=== PATIENT | female | born 1945 | race Caucasian/White ===

== ENCOUNTER → 2016-11-19 | Outpatient (CLI) | payer OTHER ==
--- NOTE | 2016-11-19 15:31 | REPMRS ---
Patient History The patient states she had a clinical breast exam in 07/2016. Patient is postmenopausal. Family history of ovarian cancer in sister at age 38. Took hormonal contraceptives for 8 years. Took unspecified hormones for 5 years. Digital Woman Screen Mammo: November 19, 2016 - Exam #: [id number] Bilateral CC and MLO view(s) were taken. Technologist: April Clinton, Technologist Prior study comparison: November 19, 2015, digital woman screen mammo performed at [facility]. July 24, 2014, digital woman screen mammo performed at [facility]. July 11, 2013, bilateral bilat screen digital mammo, performed at [facility] ([facility] FINDINGS: The breast tissue is heterogeneously dense. This may lower the sensitivity of mammography. There is a moderate amount of heterogeneously dense fibroglandular tissue which is fairly symmetric. There is no interval development of dominant mass, architectural distortion, or clustered microcalcification typical of malignancy. There has been no change in the appearance of the mammogram from the prior studies. ASSESSMENT: BI-RADS/ACR category 2 mammogram. Benign finding(s). Recommendation Routine screening mammogram of both breasts in 1 year (for women over age 40). This mammogram was interpreted with the aid of an FDA-approved computer-aided dectection system. Electronically Signed By: Jarvis Cartagena MD 11/19/16 [id number]
== END ==
LOC: M WHC 14:09
PROVIDERS: ATTEND Obstetrics & Gynecology
DX: Z12.31 Encounter for screening mammogram for malignant neoplasm of breast (principal); Z78.0 Asymptomatic menopausal state; Z92.0 Personal history of contraception; Z92.29 Personal history of other drug therapy; Z80.41 Family history of malignant neoplasm of ovary

== ENCOUNTER → 2017-11-21 | Outpatient (CLI) | payer OTHER | LOC: M WHC 09:47 | DX: Z12.31 Encounter for screening mammogram for malignant neoplasm of breast (principal) | CPT/HCPCS: 77067 ==

== ENCOUNTER 2018-12-26 14:50 | Inpatient (IN) | payer MEDICARE ==
[~2018-12-26] VITALS: Ht 154.9 cm; Wt 56.5 kg
[2018-12-26] MEDS ORDERED: LEVO50TA5 PO (15:15)
[2018-12-26] MEDS ORDERED: ATOR1TAB19 PO (15:15)
[2018-12-26] MEDS ORDERED: AMLO25TA PO (15:15)
[2018-12-26] MEDS ORDERED: LOSA100T8 PO (15:15)
[2018-12-26] MEDS ORDERED: MECLIZINE 25 MG TABLET PO ONE (15:45)
[2018-12-26 15:52] LABS: BASO % 0.3 % (0.0-1.0); EOS % 0.4 % (0.0-3.0); HEMATOCRIT 38.1 % (36.0-47.0); HEMOGLOBIN 12.7 g/dl (12.0-15.5); LYMPH # 2.2 10^3/uL (1.5-4.5); LYMPH % 31.9 % (24.0-44.0); MEAN CORPUSCULAR HEMOGLOBIN 30.2 pg (27.0-33.0); MEAN CORPUSCULAR HGB CONC 33.3 g/dl (32.0-36.5); MEAN CORPUSCULAR VOLUME 90.7 fl (80.0-96.0); MONO # 0.6 10^3/uL (0.0-0.8); MONO % 8.2 % (0.0-5.0); NEUTROPHILS % 58.3 % (36.0-66.0); PLATELET COUNT, AUTOMATED 212 10^3/uL (150-450); WHITE BLOOD COUNT 6.8 10^3/uL (4.0-10.0)
[2018-12-26] MEDS ORDERED: ONDANSETRON 4MG/2ML VIAL (J2405) IV ONE (16:00)
[2018-12-26] MEDS ORDERED: NS 500 ML IV ONE (16:00)
[2018-12-26 16:21] LABS: ALBUMIN 3.9 GM/DL (3.2-5.2); ALT/SGPT 26 U/L (12-78); BILIRUBIN,DIRECT 0.3 MG/DL (0.0-0.2); BILIRUBIN,TOTAL 1.1 MG/DL (0.2-1.0); BLOOD UREA NITROGEN 27 MG/DL (7-18); CALCIUM LEVEL 9.5 MG/DL (8.8-10.2); CARBON DIOXIDE LEVEL 30 MEQ/L (21-32); CHLORIDE LEVEL 103 MEQ/L (98-107); CK-MB VALUE MASS < 1.0 NG/ML (<3.6); CPK CREATINE PHOSPHOKINASE 82 U/L (26-192); CREATININE FOR GFR 1.24 MG/DL (0.55-1.30); FREE T4 1.09 NG/DL (0.76-1.46); GLOMERULAR FILTRATION RATE 44.9 (>39); GLUCOSE, FASTING 132 MG/DL (70-100); LIPASE 134 U/L (73-393); MB/CK RELATIVE INDEX 1.22 (< OR =4); NT-PRO BNP 264 PG/ML (<450); POTASSIUM SERUM 3.9 MEQ/L (3.5-5.1); SODIUM LEVEL 141 MEQ/L (136-145); TOTAL PROTEIN 7.1 GM/DL (6.4-8.2); TROPONIN I < 0.02 NG/ML (< 0.10)
--- NOTE | 2018-12-26 16:56 | REP ---
PORTABLE CHEST: AP portable view of the chest was performed and compared to prior study of 07/25/2011. There is mild cardiomegaly. There is scattered fibrotic scarring which appears stable with no evidence of acute infiltrate. Mediastinal silhouette is unchanged. IMPRESSION: Stable chronic findings without acute infiltrate. Electronically Signed by Percy Marshall MD 12/26/2018 06:49 P
[2018-12-26] MEDS ORDERED: VITAD1000T PO (17:44)
[2018-12-26] MEDS ORDERED: FISH1000 PO (17:44)
--- NOTE | 2018-12-26 18:12 | REP ---
CT brain without contrast: History: Syncope and headache. No comparison CT study. CT findings: Preliminary digital technical services representative radiograph is unremarkable. No bony calvarial lesion is seen. Visualized paranasal sinuses are clear. No intraorbital abnormality is appreciated. The lateral, third, and fourth ventricles are normal in size and position. There are mild periventricular low density changes in the supratentorial brain bilaterally consistent with small vessel atherosclerotic change. There is no evidence of intracranial hemorrhage. No infarct is seen. No mass or extra-axial fluid collection is noted. Impression: Mild small vessel changes. Otherwise negative head CT. Electronically Signed by Ji Cartagena MD 12/27/2018 08:02 A
[2018-12-26] MEDS ORDERED: ONDANSETRON 4MG/2ML VIAL (J2405) IV PRN (18:15)
--- NOTE | 2018-12-26 18:19 | HPEPDOC ---
General Date of Admission Dec 26, 2018 at 17:58 Date of Service: Dec 26, 2018 Chief Complaint The patient is a 73-year-old female Who presented to the emergency room after she had collapsed while History of Present Illness Patient is a 73-year-old female with a past medical history hype rtension, dyslipidemia and hypothyroidism who presented to the emergency room after she had collapsed while in her garage. Patient has reported that she has a history of experiencing dizziness at times of heat. . She reports that the last time she experiences with Thanksgiving when she was cooking in her kitchen. She reports at that point she was close to passing out, but had sat down and had alleviated her symptoms. Today, patient experienced dizziness while in her garage and she decided to sit down in a chair. . She reports that her friend went to get her some water and turned the fan on, however, she soon passed out. As per her friend was there and witnessed the event, she noted that she had complained of nausea but denied any vomiting. Patient may have lost consciousness for approximately 5 minutes, awoke with confusion that lasted for approximately 2-3 minutes. Upon regaining consciousness. Patient reported nausea and vomiting. Denied chest pain, shortness of breath, palpitations, cough. There was no witnessed seizure-like activity. No biting of her tongue and no incontinence of stool or urine. Of note, patient does report some dizziness with positional changes. And does a ttest to not drinking enough water throughout the day. Patient denies abdominal pain, diarrhea, discomfort with urination or any fevers or chills in the last 2 weeks. . She does report constipation. Denies any change in her weight. Reports that her appetite is normal. Home Medications Scheduled Amlodipine Besylate (Amlodipine Besylate) 2.5 Mg Tablet, 2.5 MG PO DAILY, (Reported) Atorvastatin Calcium (Atorvastatin Calcium) 10 Mg Tablet, 10 MG PO DAILY, (Reported) Levothyroxine Sodium (Levothyroxine Sodium) 50 Mcg Tablet, 50 MCG PO DAILY, (Reported) Losartan/Hydrochlorothiazide (Losartan-Hctz 100-12.5 mg Tab) 1 Each Tablet, 1 TAB PO DAILY, (Reported) [place]-3 Fatty Acids/Fish Oil (Fish Oil 1,000 mg Capsule) 1 Each Capsule, 1,000 MG PO DAILY, (Reported) Vitamin D (Vitamin D3) 1,000 Unit Tablet, 1,000 UNITS PO DAILY, (Reported) Allergies Coded Allergies: No Known Allergies (Unverified , 12/26/18) Past Medical History Medical History Hypertension, dyslipidemia and hypothyroidism Surgical History Dilation and curettage Left heel screw 1991 Family History - Mother and father are both - No history of malignancies Social History - Denies the use of alcohol, tobacco or illicit drugs - Denies recent travel or sick contacts - Lives with - Occupation; used to work at a restaurant Review of Systems Other systems 10 point review of systems complete, all negative otherwise stated in HPI Vital Signs - Vitals: BP 164/77, HR 74, RR 16, Sat 96%RA, Temp 97.1F - General: Lying in bed, No acute distress, Speaking in full sentences, AAOx3 - HEENT: NC, AT, PERRLA, EOMI - CVS: +S1S2, - Murmurs / rubs / gallops - Lungs: Fair air entry bilaterally, No appreciable wheezing / rales / rhonchi - Abdomen: Soft, Non-distended, Non-tender - Extremities: No lower extremity edema, No calf tenderness - Neuro: No focal motor or sensory deficit - Skin: No visible rashes Laboratory Data Labs 24H Laboratory Tests 2 12/26/18 15:37: Immature Granulocyte % (Auto) 0.9, White Blood Count 6.8, Red Blood Count 4.20, Hemoglobin 12.7, Hematocrit 38.1, Mean Corpuscular Volume 90.7, Mean Corpuscular Hemoglobin 30.2, Mean Corpuscular Hemoglobin Concent 33.3, Red Cell Distribution Width 13.6, Platelet Count 212, Neutrophils (%) (Auto) 58.3, Lymphocytes (%) (Auto) 31.9, Monocytes (%) (Auto) 8.2H, Eosinophils (%) (Auto) 0.4, Basophils (%) (Auto) 0.3, Neutrophils # (Auto) 4.0, Lymphocytes # (Auto) 2.2, Monocytes # (Auto) 0.6, Eosinophils # (Auto) 0.0, Basophils # (Auto) 0.0, Nucleated Red Blood Cells % (auto) 0.0, Anion Gap 8, Glomerular Filtration Rate 44.9, Calcium Level 9.5, Aspartate Amino Transf (AST/SGOT) 22, Alanine Aminotransferase (ALT/SGPT) 26, Alkaline Phosphatase 65, Total Bilirubin 1.1H, Direct Bilirubin 0.3H, Total Creatine Kinase 82, Creatine Kinase MB < 1.0, Creatine Kinase MB Relative Index 1.22, Troponin I < 0.02, VB-Hgq-Z-Type Natriuretic Peptide 264, Total Protein 7.1, Albumin 3.9, Albumin/Globulin Ratio 1.22, Lipase 134, Thyroid Stimulating Hormone (TSH) 6.620H, Free Thyroxine 1.09 CBC/BMP Laboratory Tests 12/26/18 15:37 Red Blood Count 4.20, Mean Corpuscular Volume 90.7, Mean Corpuscular Hemoglobin 30.2, Mean Corpuscular Hemoglobin Concent 33.3, Red Cell Distribution Width 13.6, Neutrophils (%) (Auto) 58.3, Lymphocytes (%) (Auto) 31.9, Monocytes (%) (Auto) 8.2 H, Eosinophils (%) (Auto) 0.4, Basophils (%) (Auto) 0.3, Neutrophils # (Auto) 4.0, Lymphocytes # (Auto) 2.2, Monocytes # (Auto) 0.6, Eosinophils # (Auto) 0.0, Basophils # (Auto) 0.0 Plan / VTE VTE Prophylaxis Ordered?: Yes Plan Plan Syncope - possibly 2/2 orthostatic hypotension - possibly 2/2 poor oral intake / diuresis - Presented to the emergency room after experiencing dizziness and loss of consciousness while in her hot garage - Physical without any specific findings - She did report dizziness and nausea - Cr appears to be at baseline - CT head without any acute findings - Will hold diuretic based medications - Will get ECHO, MRI Brain and EEG - c/w Telemetry - Will c/w IV fluid hydration Hypertension - BP moderately elevated - Will hold HCTZ - c/w Losartan and Amlodipine Dyslipidemia - c/w [place] 3 fish oils Hypothyroidism - c/w Levothyroxine DVT prophylaxis - Will start Heparin YINKA BATES MD Dec 26, 2018 18:19
[2018-12-26 20:00] VITALS: BP 116/68
[2018-12-26] MEDS: NS 1,000 ML IV SCH (21:49)
[2018-12-26] MEDS: HEPARIN SOD (PORCINE) 5000 UNITS/ML VIAL SC SCH (21:50)
[2018-12-27] VITALS (10 sets, daily range): BP systolic 121–175; BP diastolic 50–84
[2018-12-27] MEDS: LEVOTHYROXINE 50MCG TABLET (0.05MG) PO SCH (05:25)
[2018-12-27] MEDS: HEPARIN SOD (PORCINE) 5000 UNITS/ML VIAL SC SCH ×3 (05:25→21:54)
[2018-12-27 06:09] LABS: BASO % 0.2 % (0.0-1.0); EOS % 0.7 % (0.0-3.0); HEMATOCRIT 32.3 % (36.0-47.0); HEMOGLOBIN 10.8 g/dl (12.0-15.5); LYMPH # 1.4 10^3/uL (1.5-4.5); LYMPH % 23.1 % (24.0-44.0); MEAN CORPUSCULAR HEMOGLOBIN 29.8 pg (27.0-33.0); MEAN CORPUSCULAR HGB CONC 33.4 g/dl (32.0-36.5); MEAN CORPUSCULAR VOLUME 89.2 fl (80.0-96.0); MONO # 0.6 10^3/uL (0.0-0.8); MONO % 9.9 % (0.0-5.0); NEUTROPHILS # 3.9 10^3/uL (1.8-7.7); NEUTROPHILS % 65.8 % (36.0-66.0); PLATELET COUNT, AUTOMATED 203 10^3/uL (150-450); RED BLOOD COUNT 3.62 10^6/uL (4.00-5.40); WHITE BLOOD COUNT 5.9 10^3/uL (4.0-10.0)
[2018-12-27 06:31] LABS: CALCIUM LEVEL 8.7 MG/DL (8.8-10.2); CREATININE FOR GFR 1.06 MG/DL (0.55-1.30); GLOMERULAR FILTRATION RATE 53.8 (>39); MAGNESIUM LEVEL 2.1 MG/DL (1.8-2.4); POTASSIUM SERUM 3.8 MEQ/L (3.5-5.1)
[2018-12-27] MEDS: VITAMIN D 1,000 INTERNATIONAL UNITS TABLET PO SCH (08:17)
[2018-12-27] MEDS: OMEGA-3 1000MG CAPSULE PO SCH (08:17)
[2018-12-27] MEDS: ATORVASTATIN 10 MG TAB PO SCH (08:18)
[2018-12-27] MEDS: LOSARTAN 50 MG TAB PO SCH (08:18)
--- NOTE | 2018-12-27 09:06 | ECGEPIP ---
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
[2018-12-27] MEDS: NS 1,000 ML IV SCH (10:15)
[2018-12-27] MEDS ORDERED: LORazepam 0.5 MG TAB PO ONE (11:00)
--- NOTE | 2018-12-27 13:13 | IPNPDOC ---
Text Note Date of Service The patient was seen on 12/27/18. NOTE Subjective: Patient is a 73-year-old female with a past medical history hypertension, dyslipidemia and hypothyroidism who presented to the emergency room after she had collapsed while in her garage. Patient has reported that she has a history of experiencing dizziness at times of heat. Patient experienced dizziness while in her garage and she decided to sit down in a chair. She reports that her friend went to get her some water and turned the fan on, however, she soon passed out. As per her friend was there and witnessed the event, she noted that she had complained of nausea but denied any vomiting. Patient may have lost consciousness for approximately 5 minutes, awoke with confusion that lasted for approximately 2-3 minutes. Upon regaining co nsciousness. Patient reported nausea and vomiting. Denied chest pain, shortness of breath, palpitations, cough. Patient was admitted to hospitalist service for further evaluation and treatment. Patient was seen and examined at the bedside. . Patient has no new complaints. She denies chest pain, shortness of breath, palpitations, nausea, vomiting, abdominal pain, diarrhea or discomfort with urination. Objective: Vitals (See below) General: Lying in bed, no acute distress, comfortable, AAOx3 HEENT: NC, AT CVS: RRR, +S1S2 Lungs: Fair air entry b/l, -w/r/r Abdomen: Soft, ND, NT Extremities: No evidence of lower extremity edema, - Calf tenderness Assessment and plan: Syncope - possibly 2/2 orthostatic hypotension - possibly 2/2 poor oral intake / diuresis - Presented to the emergency room after experiencing dizziness and loss of consciousness while in her hot garage; followed by nausea and vomiting upon waking up - Currently patient is asymptomatic - Physical without any specific findings; orthostatic vital signs are negative - Cr has improved slightly - CT head without any acute findings - s/p Diuretic based medications - ECHO, MRI Brain and EEG are pending - c/w Telemetry - Will DC IV fluid hydration Hypertension - BP moderately elevated - Will hold HCTZ - c/w Losartan and Amlodipine Dyslipidemia - c/w [place] 3 fish oils Hypothyroidism - c/w Levothyroxine DVT prophylaxis - c/w Heparin Disposition: - Anticipate discharge home tomorrow VS,Fishbone, I+O VS, Fishbone, I+O Laboratory Tests 12/26/18 15:37 Red Blood Count 4.20, Mean Corpuscular Volume 90.7, Mean Corpuscular Hemoglobin 30.2, Mean Corpuscular Hemoglobin Concent 33.3, Red Cell Distribution Width 13.6, Neutrophils (%) (Auto) 58.3, Lymphocytes (%) (Auto) 31.9, Monocytes (%) (Auto) 8.2 H, Eosinophils (%) (Auto) 0.4, Basophils (%) (Auto) 0.3, Neutrophils # (Auto) 4.0, Lymphocytes # (Auto) 2.2, Monocytes # (Auto) 0.6, Eosinophils # (Auto) 0.0, Basophils # (Auto) 0.0 12/27/18 05:45 Red Blood Count 3.62 L, Mean Corpuscular Volume 89.2, Mean Corpuscular H emoglobin 29.8, Mean Corpuscular Hemoglobin Concent 33.4, Red Cell Distribution Width 13.6, Neutrophils (%) (Auto) 65.8, Lymphocytes (%) (Auto) 23.1 L, Monocytes (%) (Auto) 9.9 H, Eosinophils (%) (Auto) 0.7, Basophils (%) (Auto) 0.2, Neutrophils # (Auto) 3.9, Lymphocytes # (Auto) 1.4 L, Monocytes # (Auto) 0.6, Eosinophils # (Auto) 0.0, Basophils # (Auto) 0.0, Calcium Level 8.7 L Vital Signs Date Time Temp Pulse Resp B/P (MAP) Pulse Ox O2 Delivery O2 Flow Rate FiO2 12/27/18 11:53 96.7 68 20 150/82 (104) 100 12/26/18 19:52 Room Air I&O- Last 24 Hours up to 6 AM 12/27/18 06:00 Intake Total 1450 ml Output Total 1100 ml Balance 350 ml YINKA BATES MD Dec 27, 2018 13:12
[2018-12-28] VITALS: BP 121/73
[2018-12-28 04:00] VITALS: BP 128/71
[2018-12-28 05:39] LABS: BASO % 0.2 % (0.0-1.0); EOS # 0.1 10^3/uL (0.0-0.50); EOS % 1.5 % (0.0-3.0); HEMATOCRIT 33.5 % (36.0-47.0); HEMOGLOBIN 11.1 g/dl (12.0-15.5); LYMPH # 1.4 10^3/uL (1.5-4.5); LYMPH % 29.9 % (24.0-44.0); MEAN CORPUSCULAR HEMOGLOBIN 30.9 pg (27.0-33.0); MEAN CORPUSCULAR HGB CONC 33.1 g/dl (32.0-36.5); MEAN CORPUSCULAR VOLUME 93.3 fl (80.0-96.0); MONO # 0.5 10^3/uL (0.0-0.8); MONO % 11.1 % (0.0-5.0); NEUTROPHILS # 2.6 10^3/uL (1.8-7.7); NEUTROPHILS % 57.1 % (36.0-66.0); PLATELET COUNT, AUTOMATED 194 10^3/uL (150-450); RED BLOOD COUNT 3.59 10^6/uL (4.00-5.40); WHITE BLOOD COUNT 4.6 10^3/uL (4.0-10.0)
[2018-12-28 05:59] LABS: CALCIUM LEVEL 9.1 MG/DL (8.8-10.2); CREATININE FOR GFR 1.17 MG/DL (0.55-1.30); POTASSIUM SERUM 4.3 MEQ/L (3.5-5.1)
[2018-12-28] MEDS: LEVOTHYROXINE 50MCG TABLET (0.05MG) PO SCH (06:23)
[2018-12-28] MEDS: HEPARIN SOD (PORCINE) 5000 UNITS/ML VIAL SC SCH (06:23)
--- NOTE | 2018-12-28 08:26 | ECHO ---
DATE OF PROCEDURE: 12/27/2018 DATE OF : 1945 AGE: 73 REFERRING PROVIDER: Dr. Jorge A Berg PATIENT LOCATION: Room 3228 REASON FOR THE ECHOCARDIOGRAM: Syncope. 2-D MEASUREMENTS: IVS: 0.86 cm LV: 3.5 cm LVPW: 0.99 cm LA: 3.1 cm Aorta: 2.7 cm IVC: 1.8 cm DOPPLER MEASUREMENTS: Peak velocity across the aortic valve: 0.8 m/s Peak velocity across the LVOT: 0.74 m/s Mitral E: 0.58, Mitral A: 0.55 with a ratio of 1.1 Maximum tricuspid valve velocity: 2.7 m/s 2-D COMMENTS: 1. Normal left ventricular size, wall thickness, and normal global left ventricular systolic function. The estimated left ventricular systolic ejection fraction is 60-65%. 2. Normal left atrium. The right atrium and the right ventricle appeared to be mildly enlarged. The right ventricle free wall seems to be jerrell. 3. The atrial septum appeared to be normal without evidence of defect or shunt. 4. Normal aortic root. 5. Trace pericardial effusion noted, no evidence of cardiac tamponade. 6. Mildly calcified aortic valve with normal leaflet excursion. There was mild prolapse of the anterior mitral valve leaflet noted in limited views. Normal tricuspid valve and pulmonic valve. The proximal pulmonary artery branches were not well visualized. 7. The inferior vena cava was normal in size, central venous pressure is most likely normal. DOPPLER: It detects trace aortic regurgitation, mild mitral regurgitation, and moderately severe tricuspid regurgitation. The calculated pulmonary artery systolic pressure varies between 50-60 mmHg. Abnormal relaxation pattern was noted across the mitral valve annulus consistent with features of grade 2 left ventricular diastolic dysfunction. IMPRESSION: 1. Normal global left ventricular systolic function. There are features of left ventricular diastolic dysfunction, grade 2. 2. Aortic valve sclerosis with trace aortic radiation but no aortic stenosis. 3. Mild mitral regurgitation with probably prolapse of the anterior mitral valve leaflet. 4. Moderately severe tricuspid regurgitation with moderate pulmonary hypertension and dilated right heart chambers. The right ventricular free wall seems to be jerrell. 5. Trace pericardial effusion noted, no evidence of cardiac tamponade. 6. Trace pulmonic regurgitation.
--- NOTE | 2018-12-28 08:48 | REPVR ---
EXAM: MR Head Without Contrast EXAM DATE/TIME: 12/27/2018 7:11 PM CLINICAL HISTORY: 73 years old, female; Dizziness and syncope and collapse; Patient HX: Syncope, dizziness; Additional info: Syncope / vertigo TECHNIQUE: Imaging protocol: MR of the head without contrast. COMPARISON: CT Head without contrast 12/26/2018 4:30 PM FINDINGS: Brain: No evidence of acute cortical infarct. No evidence of restricted diffusion. There is no evidence of intracranial hemorrhage. Nonspecific Flair/T2 hyperintensities within the cerebral white matter/brainstem statistically most likely on the basis of chronic small vessel ischemic change. No cerebellar mass. No Chiari malformation.No CP angle mass. Ventricles: The ventricular system is midline and normal in size for the degree of sulcal dilatation. No hydrocephalus. Bones/joints: No suspicious marrow replacing lesions. Soft tissues: Normal. Sinuses: The demonstrated paranasal sinuses are free of air-fluid level or suspicious mass. Mastoid air cells: Normal as visualized. No mastoid effusion. Orbits/sella: The optic chiasm is normal. No pituitary region mass. No suspicious orbital mass. Bilateral staphyloma incidentally noted. IMPRESSION: No evidence of acute ischemia, hemorrhage or mass effect. Nonemergent/chronic findings as described above. Electronically signed by: Pk Taylor On 12/28/2018 08:48:30 AM
[2018-12-28 08:50] VITALS: BP_SYST 122; BP_SYST 128; BP_SYST 132; BP_DIAS 70; BP_DIAS 78
[2018-12-28 09:16] VITALS: BP 122/70
[2018-12-28] MEDS: LOSARTAN 50 MG TAB PO SCH (09:16)
[2018-12-28] MEDS: VITAMIN D 1,000 INTERNATIONAL UNITS TABLET PO SCH (09:16)
[2018-12-28] MEDS: ATORVASTATIN 10 MG TAB PO SCH (09:17)
[2018-12-28] MEDS: OMEGA-3 1000MG CAPSULE PO SCH (09:17)
[2018-12-28] MEDS ORDERED: AMLO5TAB6 PO (10:08)
[2018-12-28] MEDS ORDERED: COZA50TA PO (10:08)
--- NOTE | 2018-12-28 12:57 | DS.PDOC ---
Discharge Summary General Date of Admission Dec 26, 2018 at 17:58 Date of Discharge 12/28/2018 Discharge Summary PROCEDURES PERFORMED DURING STAY: [None]. ADMITTING DIAGNOSES / DISCHARGE DIAGNOSES: Syncope - possibly 2/2 orthostatic hypotension - possibly 2/2 poor oral intake / diuresis Hypertension Dyslipidemia Hypothyroidism DVT prophylaxis COMPLICATIONS/CHIEF COMPLAINT: Syncope. HISTORY OF PRESENT ILLNESS: Patient is a 73-year-old female with a past medical history hypertension, dyslipidemia and hypothyroidism who presented to the emergency room after she had collapsed while in her garage. Patient has reported that she has a history of experiencing dizziness at times of heat. Patient experienced dizziness while in her garage and she decided to sit down in a chair. She reports that her friend went to get her some water and turned the fan on, however, she soon passed out. As per her friend was there and witnessed the event, she noted that she had complained of nausea but denied any vomiting. Patient may have lost consciousness for approximately 5 minutes, awoke with confusion that lasted for approximately 2-3 minutes. Upon regaining consciousness. Patient reported nausea and vomiting. Denied chest pain, shortness of breath, palpitations, cough. Patient was admitted to hospitalist service for further evaluation and treatment. HOSPITAL COURSE: Syncope - possibly 2/2 orthostatic hypotension - possibly 2/2 poor oral intake / diuresis - Presented to the emergency room after experiencing dizziness and loss of consciousness while in her hot garage; followed by nausea and vomiting upon waking up - Currently patient is asymptomatic - Physical without any specific findings; orthostatic vital signs are negative - Cr has improved slightly - CT head without any acute findings - s/p Diuretic based medications - ECHO 12/27: G2DD, AV sclerosis, trace AR, mild MR, moderately severe tricuspid regurgitation with moderate pulmonary HTN, trace pericardial effusion, no tamp onade - MRI 12/27: No evidence of acute ischemia, hemorrhage or mass effect. Nonemergent/chronic findings as described above. - EEG completed; report pending + - c/w Telemetry - s/p IV fluid hydration - Will have outpatient follow-up with Dr. Julio Stallings within 7 days Hypertension - BP moderately elevated - HCTZ has been discontinued - c/w Losartan and Amlodipine; dose of amlodipine has been increased on discharge Dyslipidemia - c/w [place] 3 fish oils Hypothyroidism - c/w Levothyroxine DVT prophylaxis - c/w Heparin DISCHARGE MEDICATIONS: Please see below. ALLERGIES: Please see below. PHYSICAL EXAMINATION ON DISCHARGE: Vitals (See below) General: Lying in bed, no acute distress, comfortable, AAOx3 HEENT: NC, AT CVS: +S1S2 Lungs: Fair air entry b/l, no appreciable wheezing, rhonchi or rales Abdomen: Soft, nondistended and nontender Extremities: Lower extremity are free of any edema, - Calf tenderness LABORATORY DATA: Please see below. ACTIVITY: [As tolerated]. DISCHARGE PLAN: Please follow up with Dr. Julio Stallings within 7 days Remain compliant with treatment plan and medications Return to the ER if you experience any problems DISPOSITION: Home, Self-Care. DISCHARGE CONDITION: [Stable]. TIME SPENT ON DISCHARGE: 35 minutes Vital Signs/I&Os Vital Signs Date Time Temp Pulse Resp B/P (MAP) Pulse Ox O2 Delivery O2 Flow Rate FiO2 12/28/18 09:16 122/70 12/28/18 09:16 73 12/28/18 08:00 97.2 20 97 12/26/18 19:52 Room Air I&O- Last 24 Hours up to 6 AM 12/28/18 06:00 Intake Total 1860 ml Output Total 1100 ml Balance 760 ml Laboratory Data Labs 24H Laboratory Tests 2 12/28/18 05:10: Immature Granulocyte % (Auto) 0.2, White Blood Count 4.6, Red Blood Count 3.59L, Hemoglobin 11.1L, Hematocrit 33.5L, Mean Corpuscular Volume 93.3, Mean Corpuscular Hemoglobin 30.9, Mean Corpuscular Hemoglobin Concent 33.1, Red Cell Distribution Width 13.9, Platelet Count 194, Neutrophils (%) (Auto) 57.1, Lymphocytes (%) (Auto) 29.9, Monocytes (%) (Auto) 11.1H, Eosinophils (%) (Auto) 1.5, Basophils (%) (Auto) 0.2, Neutrophils # (Auto) 2.6, Lymphocytes # (Auto) 1.4L, Monocytes # (Auto) 0.5, Eosinophils # (Auto) 0.1, Basophils # (Auto) 0.0, Nucleated Red Blood Cells % (auto) 0.0, Anion Gap 5L, Glomerular Filtration Rate 48.0, Blood Urea Nitrogen 22H, Creatinine 1.17, Sodium Level 145, Potassium Level 4.3, Chloride Level 109H, Carbon Dioxide Level 31, Calcium Level 9.1, Magnesium Level 2.0 CBC/BMP Laboratory Tests 12/28/18 05:10 Red Blood Count 3.59 L, Mean Corpuscular Volume 93.3, Mean Corpuscular Hemoglobin 30.9, Mean Corpuscular Hemoglobin Concent 33.1, Red Cell Distribution Width 13.9, Neutrophils (%) (Auto) 57.1, Lymphocytes (%) (Auto) 29.9, Monocytes (%) (Auto) 11.1 H, Eosinophils (%) (Auto) 1.5, Basophils (%) (Auto) 0.2, Neutrophils # (Auto) 2.6, Lymphocytes # (Auto) 1.4 L, Monocytes # (Auto) 0.5, Eosinophils # (Auto) 0.1, Basophils # (Auto) 0.0, Calcium Level 9.1 Discharge Medications Scheduled Amlodipine Besylate (Amlodipine Besylate) 5 Mg Tablet, 1 TAB PO DAILY Atorvastatin Calcium (Atorvastatin Calcium) 10 Mg Tablet, 10 MG PO DAILY, (Reported) Levothyroxine Sodium (Levothyroxine Sodium) 50 Mcg Tablet, 50 MCG PO DAILY, (Reported) Losartan Potassium (Cozaar) 50 Mg Tablet, 100 MG PO DAILY [place]-3 Fatty Acids/Fish Oil (Fish Oil 1,000 mg Capsule) 1 Each Capsule, 1,000 MG PO DAILY, (Reported) Vitamin D (Vitamin D3) 1,000 Unit Tablet, 1,000 UNITS PO DAILY, (Reported) Allergies Coded Allergies: No Known Allergies (Unverified , 12/26/18) YINKA BATES MD Dec 28, 2018 12:57
--- NOTE | 2018-12-28 16:09 | EEG ---
DATE OF EE12/27/2018 REFERRING PHYSICIAN: Dr. Melita Berg DIAGNOSIS: Syncope. EEG NUMBER: [id number] HISTORY: Patient is a 73-year-old woman who was cleaning garage at house of her daughter when she felt hot, lightheadedness and passed out. This EEG was done to rule out epileptic potential. She is currently taking losartan, Lipitor, levothyroxine, amlodipine, Ativan, etc. TECHNICAL DESCRIPTION: This digital EEG was recorded by 21 scalp, ear and two EKG electrodes and was reviewed in bipolar and referential montages following reformatting in 10-20 international electrode placement system. INTERPRETATION: Patient was noted to be in awake and drowsy states during this EEG. Resting awake background rhythm consisted of well-formed posterior dominant rhythm with anterior/posterior gradient comprising of 9 Hz alpha activity measuring 15-40 microvolts in amplitude, which was symmetric and reactive to eye opening. Attenuation of posterior dominant rhythm was seen during transition into drowsiness. Anteriorly low voltage and mixed frequency activity was noted. No sleep was achieved. Hyperventilation could not be performed. Photic stimulation remained unremarkable. No focal, lateralizing or epileptiform abnormalities were seen. No clinical or electrographic seizures were recorded. CONCLUSION: This EEG in awake and drowsy states is within normal limits. EKG revealed normal sinus rhythm.
== END 2018-12-28 11:42 | disposition home or self-care (01) | DRG 312 ==
LOC: M ED 14:50 → EDBD 14:50 → M ED INP 17:58 → M PCU 20:20
PROVIDERS: ADMIT Internal Medicine; ATTEND Internal Medicine
DX: I95.1 Orthostatic hypotension (principal); E78.5 Hyperlipidemia, unspecified; E03.9 Hypothyroidism, unspecified; K59.00 Constipation, unspecified; I10 Essential (primary) hypertension; Z79.899 Other long term (current) drug therapy

== ENCOUNTER → 2019-12-05 | Outpatient (CLI) | payer MEDICARE ==
[~2019-12-05] MED LIST: AMLO1TAB24 PO; AMLO25TA PO; ATOR1TAB19 PO; CALC600T61 PO; CHOL100029 PO; COZA50TA PO; D31000TA2 PO; FISH1000 PO; LEVO50TA5 PO; LOSA100T8 PO; MILKSUS3 PO; MIRA3350 PO; MM S100C PO; VALS1TAB66 PO
[2019-12-05 14:46] LABS: ALBUMIN 4.1 GM/DL (3.2-5.2); BILIRUBIN,TOTAL 1.3 MG/DL (0.2-1.0); CALCIUM LEVEL 9.7 MG/DL (8.8-10.2); CREATININE FOR GFR 1.09 MG/DL (0.55-1.30); POTASSIUM SERUM 4.2 MEQ/L (3.5-5.1); TOTAL PROTEIN 7.6 GM/DL (6.4-8.2)
[2019-12-05 15:25] LABS: BASO % 0.2 % (0.0-1.0); EOS % 0.2 % (0.0-3.0); HEMATOCRIT 41.4 % (36.0-47.0); HEMOGLOBIN 13.5 g/dl (12.0-15.5); LYMPH # 2.1 10^3/uL (1.5-5.0); LYMPH % 21.4 % (24.0-44.0); MEAN CORPUSCULAR HEMOGLOBIN 30.1 pg (27.0-33.0); MEAN CORPUSCULAR HGB CONC 32.6 g/dl (32.0-36.5); MEAN CORPUSCULAR VOLUME 92.4 fl (80.0-96.0); MONO # 0.7 10^3/uL (0.0-0.8); MONO % 7.2 % (0.0-5.0); NEUTROPHILS # 6.8 10^3/uL (1.5-8.5); NEUTROPHILS % 70.7 % (36.0-66.0); PLATELET COUNT, AUTOMATED 262 10^3/uL (150-450); RED BLOOD COUNT 4.48 10^6/uL (4.00-5.40); WHITE BLOOD COUNT 9.6 10^3/uL (4.0-10.0)
[2019-12-05 16:24] LABS: ERYTHROCYTE SEDIMENTATION RATE 14 mm/hr (0-30)
== END ==
LOC: M WUC 11:29
PROVIDERS: ATTEND Physician Assistant
DX: L04.0 Acute lymphadenitis of face, head and neck (principal)

== ENCOUNTER → 2020-01-21 | Outpatient (REF) | payer MEDICARE | LOC: M LAB REF 06:58 | PROVIDERS: ATTEND Internal Medicine | DX: R19.4 Change in bowel habit (principal) ==

== ENCOUNTER → 2020-04-11 | Outpatient (CLI) | payer MEDICARE | LOC: M LABSMTC 10:20 | PROVIDERS: ATTEND Anesthesiology | DX: Z01.812 Encounter for preprocedural laboratory examination (principal); Z20.828 Contact with and (suspected) exposure to other viral communicable diseases | CPT/HCPCS: C9803; U0003 ==

== ENCOUNTER 2020-04-16 07:59 | Day surgery (SDC) | payer MEDICARE ==
[~2020-04-16] VITALS: Ht 157.5 cm; Wt 53.5 kg
[~2020-04-16 07:59] MED LIST changes: +LIDOCAINE 2% 100MG/5ML SDV (FOR ANES.) As Ordered ONE; +NS 1,000 ML IV ONE; +propofoL 200 MG/20 ML VIAL As Ordered ONE
[2020-04-16 09:45] VITALS: BP 139/65
--- NOTE | 2020-04-16 14:54 | ROOR ---
Patient Name: Divya Lee Procedure Date: 04/16/2020 8:36 AM Date of : 1945 Age: 74 Room: [facility] Gender: Female Note Status: Finalized Procedure: Total Colonoscopy to Cecum + Bx. To r/o Microscopic Colitis Indications: Change in bowel habits Providers: Eric Hi MD Referring MD: Lidia Stallings DO Requesting Provider: Medicines: Monitored Anesthesia Care Complications: No immediate complications. Procedure: Pre-Anesthesia Assessment: - The heart rate, respiratory rate, oxygen saturations, blood pressure, adequacy of pulmonary ventilation, and response to care were monitored throughout the procedure. The Colonoscope was introduced through the anus and advanced to the cecum, identified by appendiceal orifice and ileocecal valve. The Colonoscope was introduced through the and advanced to. The colonoscopy was performed without difficulty. The patient tolerated the procedure well. The quality of the bowel preparation was good. Findings: The perianal and digital rectal examinations were normal. Non-bleeding internal hemorrhoids were found during retroflexion. The hemorrhoids were small and Grade I (internal hemorrhoids that do not prolapse). No other significant abnormalities were identified in a careful examination of the remainder of the colon. Biopsies for histology were taken with a cold forceps from the ascending colon, transverse colon, descending colon and rectosigmoid colon for evaluation of microscopic colitis. The exam was otherwise without abnormality on direct and retroflexion views. Impression: - Non-bleeding internal hemorrhoids. - The examination was otherwise normal on direct and retroflexion views. - Biopsies were taken with a cold forceps from the ascending colon, transverse colon, descending colon and rectosigmoid colon for evaluation of microscopic colitis. - The exam was otherwise normal to the cecum. Recommendation: - Patient has a contact number available for emergencies. The signs and symptoms of potential delayed complications were discussed with the patient. Return to normal activities tomorrow. Written discharge instructions were provided to the patient. - High fiber diet. - Discharge patient to home. - Continue present medications. - Await pathology results. - Telephone GI clinic for pathology results in 1 week. - Return to referring physician. - Repeat colonoscopy is not recommended due to current age (66 years or older) for screening purposes. - The findings and recommendations were discussed with the patient. Eric Hi MD Eric Hi MD 04/16/2020 2:54:28 PM Electronically signed by Eric Hi MD Number of Addenda: 0 Note Initiated On: 04/16/2020 8:36 AM Estimated Blood Loss: Estimated blood loss: none.
== END 2020-04-16 09:56 | disposition home or self-care (01) ==
LOC: M OPP 07:59
PROVIDERS: ATTEND Internal Medicine Gastroenterology
DX: K64.0 First degree hemorrhoids (principal); R19.4 Change in bowel habit; K21.9 Gastro-esophageal reflux disease without esophagitis; Z79.899 Other long term (current) drug therapy

== ENCOUNTER → 2020-05-05 | Outpatient (CLI) | payer MEDICARE ==
[~2020-05-05] MED LIST changes: -LIDOCAINE 2% 100MG/5ML SDV (FOR ANES.) As Ordered ONE; -NS 1,000 ML IV ONE; -propofoL 200 MG/20 ML VIAL As Ordered ONE
--- NOTE | 2020-05-05 16:19 | REPMRS ---
Patient History The patient states she has not had a clinical breast exam in over a year. Family history of ovarian cancer at age 38 in sister. Took hormonal contraceptives for 8 years. Took unspecified hormones for 5 years. 3D TOMOSYNTHESIS WAS PERFORMED. [facility] [place] breast density c. Digital Woman Screen Mammo: May 05, 2020 - Exam #: [id number] Bilateral CC and MLO view(s) were taken. Technologist: Edwige Juarez, Technologist Prior study comparison: November 21, 2018, bilateral digital woman screen mammo performed at [facility]. November 21, 2017, digital woman screen mammo performed at [facility]. FINDINGS: The breast tissue is heterogeneously dense. This may lower the sensitivity of mammography. There has been no change in the appearance of the mammogram from the prior studies. There is a moderate amount of residual fibroglandular tissue which is fairly symmetric. There is no interval development of dominant mass, areas of architectural distortion, or clustered microcalcification typical of malignancy. Assessment: BI-RADS/ACR category 1 mammogram. Negative Mammogram. Recommendation Routine screening mammogram in 1 year (for women over age 40). This mammogram was interpreted with the aid of an FDA-approved computer-aided dectection system. Electronically Signed By: Percy Marshall MD 05/05/20 [id number]
== END ==
LOC: M WHC 15:52
PROVIDERS: ATTEND Internal Medicine
DX: Z12.31 Encounter for screening mammogram for malignant neoplasm of breast (principal); Z80.41 Family history of malignant neoplasm of ovary

== ENCOUNTER → 2020-06-29 | Outpatient (CLI) | payer MEDICARE | LOC: M LABSMTC 10:06 | PROVIDERS: ATTEND Internal Medicine | DX: Z20.822 Contact with and (suspected) exposure to COVID-19 (principal) ==

== ENCOUNTER → 2020-11-20 | Outpatient (CLI) | payer MEDICARE ==
--- NOTE | 2020-11-21 05:06 | REP ---
INDICATION: THYROID NODULES COMPARISON: 07/25/2018 TECHNIQUE: Marshall scale and color evaluation of the thyroid gland using the linear high frequency transducer. FINDINGS: The thyroid gland is normal in contour, shape, size, and parenchymal echogenicity. Isthmus measures 2.2 mm in width. Right thyroid lobe measures 3.5 x 1.8 x 0.8 cm and includes stable 2 mm midpole hypoechoic nodule/cyst and stable 7 x 4 x 5 mm lower pole stable nodule. Left lobe measures 2.2 x 0.8 x 0.8 cm with a stable 3 mm cyst along the medial aspect adjacent to the isthmus. IMPRESSION: Stable thyroid examination compared with 2019. <Electronically signed by Pk Fu > 11/21/20 0202
== END ==
LOC: M RAD 13:42
PROVIDERS: ATTEND Internal Medicine
DX: E04.1 Nontoxic single thyroid nodule (principal)

== ENCOUNTER → 2021-06-08 | Outpatient (CLI) | payer MEDICARE | LOC: M WHC 09:31 | PROVIDERS: ATTEND Obstetrics & Gynecology | DX: Z12.31 Encounter for screening mammogram for malignant neoplasm of breast (principal); Z92.0 Personal history of contraception ==

== ENCOUNTER → 2021-11-27 | Outpatient (CLI) | payer MEDICARE ==
[~2021-11-27] MED LIST changes: -D31000TA2 PO; +VITA100093 PO
== END ==
LOC: M WUC 13:15
PROVIDERS: ATTEND Internal Medicine
DX: M54.2 Cervicalgia (principal); M54.14 Radiculopathy, thoracic region

== ENCOUNTER → 2022-01-28 | Outpatient (CLI) | payer MEDICARE | LOC: M WHC 13:50 | PROVIDERS: ATTEND Internal Medicine | DX: M81.0 Age-related osteoporosis without current pathological fracture (principal) ==

== ENCOUNTER → 2022-06-10 | Outpatient (CLI) | payer MEDICARE | LOC: M WHC 15:10 | PROVIDERS: ATTEND Internal Medicine | DX: Z12.31 Encounter for screening mammogram for malignant neoplasm of breast (principal) ==

== ENCOUNTER → 2022-11-26 | Outpatient (REF) | payer MEDICARE ==
[~2022-11-26] MED LIST changes: -COZA50TA PO; +LOSA-528 PO
== END ==
LOC: M LAB REF 16:41
PROVIDERS: ATTEND Internal Medicine
DX: R19.4 Change in bowel habit (principal)

== ENCOUNTER → 2023-06-16 | Outpatient (CLI) | payer MEDICARE | LOC: M WHC 12:55 | PROVIDERS: ATTEND Internal Medicine | DX: Z12.31 Encounter for screening mammogram for malignant neoplasm of breast (principal); Z80.3 Family history of malignant neoplasm of breast ==

== ENCOUNTER → 2024-06-18 | Outpatient (CLI) | payer MEDICARE | LOC: M WHC 11:29 | PROVIDERS: ATTEND Internal Medicine | DX: Z12.31 Encounter for screening mammogram for malignant neoplasm of breast (principal) ==

== ENCOUNTER → 2024-07-09 | Outpatient (CLI) | payer MEDICARE | LOC: M RAD 10:16 | PROVIDERS: ATTEND Internal Medicine | DX: E04.1 Nontoxic single thyroid nodule (principal) ==

== ENCOUNTER → 2024-09-10 | Outpatient (CLI) | payer MEDICARE | LOC: M WHC 13:23 | PROVIDERS: ATTEND Internal Medicine | DX: M81.0 Age-related osteoporosis without current pathological fracture (principal) ==